=== PATIENT | male | born 1970 | race African-American/Black ===

== ENCOUNTER 2024-01-22 20:47 | Emergency (ER) | payer OTHER ==
[~2024-01-22] VITALS: Ht 167.6 cm; Wt 63.5 kg
[2024-01-22] MEDS ORDERED: QUET25TA PO (20:58)
[2024-01-22 22:44] VITALS: BP 145/90; O2SAT 98
== END 2024-01-22 22:45 | disposition home or self-care (01) ==
LOC: ER 20:47
DX: Z13.89 Encounter for screening for other disorder (principal); F25.9 Schizoaffective disorder, unspecified; Z79.899 Other long term (current) drug therapy
CPT/HCPCS: A4606; A4663